=== PATIENT | male | born 1975 | race Two or more races ===

== ENCOUNTER 2022-12-27 09:19 | Emergency (ER) | payer SELFPAY ==
[~2022-12-27] VITALS: Ht 167.6 cm; Wt 85.0 kg
[2022-12-27] MEDS ORDERED: LIDOCAINE 1% 10 ML VIAL SQ ONE (12:30)
[2022-12-27] MEDS ORDERED: CEPH-558 PO (13:00)
[2022-12-27 13:30] VITALS: BP 166/98
== END 2022-12-27 13:32 | disposition home or self-care (01) ==
LOC: EMS 09:23
DX: S60.421A Blister (nonthermal) of left index finger, initial encounter (principal); I10 Essential (primary) hypertension; F17.210 Nicotine dependence, cigarettes, uncomplicated; X58.XXXA Exposure to other specified factors, initial encounter; Y93.89 Activity, other specified; Y92.89 Other specified places as the place of occurrence of the external cause; Y99.8 Other external cause status
CPT/HCPCS: 99283; 73120; 12001; J3490